=== PATIENT | male | born 1955 | race Two or more races ===

== ENCOUNTER → 2017-01-24 | Outpatient (CLI) | payer BC ==
--- NOTE | ~2017-01-24 | ST ---
Unit #: [id number] #: [id number] Patient: BRONWYN MELENDEZ V [id number] [address] [address] [id number] O MR#: [id number] NAME: BRONWYN MELENDEZ V. : 1955 SEX: M STUDY DATE/TIME: 01/24/2017 UNIT: [facility] ROOM: STUDY DESCRIPTION: Lexiscan stress test Attending Physician: Tal Blankenship M.D. Referring Physician: Tal Blankenship M.D. Primary Care Physician: Lisa Garcia Aprn CARDIOLOGY REPORT PROCEDURES PERFORMED Lexiscan Cardiolite stress test. NOTE: It was initially ordered as an exercise Cardiolite; however, the patient is [place] and speaks no Occitan. We attempted for the patient to understand the treadmill; however, he had difficulty with comprehension and has never been on a treadmill. Therefore, I was concerned about his safety being on a treadmill. The test was, therefore, changed over to a Lexiscan Cardiolite secondary to safety reasons and the patient's inability with comprehension. REASON FOR THE EXAM Chest pain. PROCEDURE Baseline EKG shows sinus rhythm, rate of 69 beats per minute. Per protocol, 0.4 mg of Lexiscan was injected, followed by Cardiolite. During the testing the patient did experience shortness of breath, as well as nausea and lightheadedness. He denied any complaints of chest pain. There were no ST segment changes noted suggestive of ischemia. There was no ectopy. IMPRESSION 1. Negative EKG portion of Lexiscan Cardiolite. 2. No ST segment changes suggestive of ischemia. 3. During the infusion the patient did experience shortness of breath, nausea and lightheadedness. 4. His blood pressure ranged from 157/97 to a transient low of 108/68 with a final blood pressure of 134/88. 5. There were no arrhythmias. 6. Please correlate with nuclear imaging. Dictated by... Julio Argueta M.D. LMW/db TD: 01/24/2017 13:06 Unit #: [id number] #: [id number] Patient: BRONWYN MELENDEZ V JOB #: [id number] CARDIOLOGY REPORT Page 1 of 1 X Umu Ni APRN CARDIOLOGY REPORT
--- NOTE | ~2017-01-24 | TH ---
Unit #: [id number] #: [id number] Patient: BRONWYN MELENDEZ V [id number] [address] [address] [id number] O MR#: [id number] NAME: BRONWYN MELENDEZ V. : 1955 SEX: M STUDY DATE/TIME: UNIT: [facility] ROOM: STUDY DESCRIPTION: Nuclear Study Attending Physician: Tal Blankenship M.D. Referring Physician: Tal Blankenship M.D. Primary Care Physician: Lisa Garcia Aprn CARDIOLOGY REPORT EXAM Exercise Cardiolite Stress Test - Nuclear Portion PROCEDURE Using technetium 99m labeled Cardiolite, rest and stress SPECT images were obtained. Multiple SPECT images were obtained in various views including horizontal and vertical long axis and short axis views of the left ventricle. Images were obtained by gated SPECT method. The patient was administered 9.10 mCi of Cardiolite at rest. The patient was administered 31.0 mCi of Cardiolite after Lexiscan infusion was completed. On the stress images, there is normal perfusion noted. The rest images show normal perfusion. Comparing rest and stress images, there is no stress-induced ischemia noted. The left ventricular ejection fraction is calculated to 57%. There is no focal wall motion abnormality seen. CONCLUSION 1. No stress-induced ischemia noted. 2. The left ventricular ejection fraction is calculated to be 57%. 3. There is no focal wall motion abnormality seen. 4. Normal Lexiscan Cardiolite stress test. 5. Technically somewhat limited study due to significant gut uptake. Clinical correlation is requested. Dictated by... Rama Freeman TD: 01/25/2017 15:15 JOB #: [id number] Unit #: [id number] #: [id number] Patient: BRONWYN MELENDEZ V CARDIOLOGY REPORT Page 1 of 1 X Lindsey Luna MD <ELECTRONICALLY SIGNED> 05/03/17 [id number] CARDIOLOGY REPORT
== END | disposition home or self-care (01) ==
LOC: CNUC 10:15
DX: R07.9 Chest pain, unspecified (principal)
CPT/HCPCS: 78452; 93017; 93306; A9500; J2785